=== PATIENT | female | born 1985 | race Caucasian/White ===

== ENCOUNTER 2019-03-21 05:07 | Inpatient (IN) ==
[2019-03-12 10:08] LABS: URINE SOURCE VOIDED
[2019-03-12 10:15] LABS: BASO# 0.03 X1000 (0.0-0.2); BASO% 0.6 % (0.0-0.8); EOS# 0.13 X1000 (0.0-0.7); EOS% 2.7 % (0.0-10.0); HEMATOCRIT 38.5 % (37.0-47.0); HEMOGLOBIN 12.7 g/dL (12.0-16.0); LYMPH% 33.5 % (20.5-51.1); MCH 27.5 PG (27-31); MCV 83.5 FL (81-99); MONO# 0.42 X1000 (0.11-0.59); MONO% 8.8 % (1.7-9.3); MPV 9.8 FL (7.4-10.4); NEUT# 2.59 X1000 (1.4-6.5); NEUT% 54.4 % (42.2-75.2); PLT 260 X1000 (130-400); RBC 4.61 XMIL (4.2-5.4); RDW 14.5 % (11.5-14.5); WBC 4.77 X1000 (4.8-10.8)
[2019-03-12 10:17] LABS: BILIRUBIN URINE NEGATIVE (NEGATIVE); BLOOD URINE SMALL (NEGATIVE); COLOR YELLOW; GLUCOSE URINE NEGATIVE (NEGATIVE); KETONE URINE TRACE mg/dL (NEGATIVE); LEUKOCYTES URINE SMALL (NEGATIVE); NITRITE URINE NEGATIVE (NEGATIVE); PROTEIN URINE NEGATIVE (NEGATIVE); TURBIDITY URINE CLEAR (CLEAR); UR EPITHELIAL CELLS >10 /HPF (<10); URINE BACTERIA 3+ /HPF; URINE WBC <10 /HPF (<10); UROBILINOGEN URINE NORMAL (NORMAL)
--- NOTE | 2019-03-20 12:47 | HISTORY AND PHYSICAL ---
ADMITTING PHYSICIAN: Dr. Ricky Plasencia. CHIEF COMPLAINT: Pelvic pain. HISTORY OF PRESENT ILLNESS: A 33-year-old, G2, P2-0-0-2 with heavy irregular bleeding and pelvic pain, presents for a scheduled laparoscopic-assisted vaginal hysterectomy and bilateral salpingectomy. Her menses is irregular and sometimes lasts for approximately 1 month. She has tried multiple medications to alleviate this problem, but none have been effective. She has tried Depo and oral contraceptives in the past. She is status post a bilateral tubal ligation in 2007. She desires definitive treatment in the form of a hysterectomy. We discussed that hysterectomy would solve heavy menses, but may not treat the chronic pelvic pain that she has experienced. Discussed that pain may even be worsened from scar tissue that develops after surgery. Discussed the benefit of ovarian conservation and risk of heart disease if ovaries are removed at such a young age. Discussed risks, benefits, and alternatives to the procedure. Risks include, but are not limited to, bleeding, infection, damage to surrounding pelvic organs, possible open surgery, possible need for reoperation, risk and DVT and PE, and even risk of . She desires to proceed. REVIEW OF SYSTEMS: Heavy periods, painful periods, and pelvic pain. PAST MEDICAL HISTORY: Tobacco abuse, chronic pelvic pain, asthma. MEDICATIONS: Albuterol sulfate 4 times a day p.r.n. bronchospasm, meloxicam 7.5 mg daily p.r.n. muscle spasm. ALLERGIES: Latex. OBSTETRIC HISTORY: G2, P2-0-0-2. G1: Spontaneous vaginal delivery at 40 weeks, male, 7 pounds 10 ounces (2005). G2: Spontaneous vaginal delivery at 42 weeks, male, 6 pounds 14 ounces (2007). GYNECOLOGIC HISTORY: She denies any history of sexually transmitted infections. Pap smear was performed in 06/2018 and was normal. Menarche was at age 14. She has a history of heavy and irregular menses that has been unrelieved with medical therapy. PAST SURGICAL HISTORY: History of knee surgery, history of bilateral tubal ligation. SOCIAL HISTORY: She smokes 1 pack of cigarettes and has for 15 years. She denies any alcohol or drug use. FAMILY HISTORY: Grandmother with congestive heart failure and a history of bone cancer. Grandfather with diabetes. VITAL SIGNS: Temperature 98 degrees, blood pressure 104/64, heart rate 85, O2 saturation 100% on room air, respiratory rate 16. BMI 23. LABORATORY DATA: White blood cell 4.7, hemoglobin 12.7, hematocrit 38.5, platelets 260,000. Sodium 143, potassium 4.3, chloride 107, CO2 of 24, BUN 9, creatinine 0.7, blood sugar 62. Urinalysis: Small blood, trace ketones, nitrite negative, greater than 10 epithelial cells, small leukocytes. Blood type O positive. UPT on 03/12/2019 negative. Pap smear negative in 06/2018. PELVIC IMAGING: Transvaginal ultrasound on 01/22/2019: There are a few small bilateral ovarian follicles and cysts on the right side. The largest measures about 1.6 cm. On the left side, the largest measures 2.1 x 2 cm. There are extensive pelvic veins around the ovaries and the uterus. This was present on the CT from 06/2018. The uterus is normal in echotexture. The uterus measures 8.3 x 5.8 x 3.8 cm. Endometrial stripe is 8 mm. No free fluid. Impression: 1) Small bilateral ovarian cysts. 2) There are a lot of prominent veins surrounding the female reproductive organs. This may suggest pelvic congestion syndrome. PHYSICAL EXAMINATION: GENERAL: Appears well, alert, in no apparent distress. CARDIOVASCULAR: Regular rate and rhythm. No murmurs, rubs, or gallops. RESPIRATORY: No respiratory distress. Lungs clear to auscultation bilaterally. ABDOMEN: Soft, nontender. Normal bowel sounds. EXTREMITIES: Normal range of motion. Nontender. PELVIC: External exam: Normal. Speculum exam: Cervix without lesion. Mild tenderness to palpation. Bimanual exam: Uterus mobile. Tender to palpation, midposition. No adnexal masses or tenderness. ASSESSMENT AND PLAN: A 33-year-old, 2, para 2-0-0-2 with heavy menses, pelvic pain, possible pelvic congestion syndrome, and tobacco abuse, who desires definitive treatment in the form of a hysterectomy. 1. Plan for a laparoscopic-assisted vaginal hysterectomy and bilateral salpingectomy on 03/21/2019. Discussed risks, benefits, and alternatives with the patient. All questions were answered. 2. Nothing by mouth at midnight on day of surgery. 3. Urinary test prior to procedure. 4. Will plan to admit for observation after procedure completed. [facility]
[2019-03-21] MEDS ORDERED: PEPCID ONE (05:37)
[2019-03-21] MEDS ORDERED: LR 1,000 ML ONE ×3 (05:37→11:24)
[2019-03-21] MEDS ORDERED: REGLAN ONE (05:37)
[2019-03-21] MEDS ORDERED: KEFZOL 1 GM/D5W 1 GM/50 ML IVPB ONE ×2 (05:37→07:02)
[2019-03-21] MEDS ORDERED: QUELICIN (DOSE) ONE (06:04)
[2019-03-21] MEDS ORDERED: DIPRIVAN 1% ONE (06:04)
[2019-03-21] MEDS ORDERED: SODIUM CHLORIDE 0.9% 10 ML ONE (06:04)
[2019-03-21] MEDS ORDERED: XYLOCAINE-MPF 2% ONE (06:04)
[2019-03-21] MEDS ORDERED: VERSED ONE (06:04)
[2019-03-21] MEDS ORDERED: NORCURON ONE (06:04)
[2019-03-21] MEDS ORDERED: FENTANYL ONE (06:05)
[2019-03-21] MEDS ORDERED: XYLOCAINE 1%/EPI 1:100,000 ONE (06:44)
--- NOTE | 2019-03-21 06:46 | H&P REVIEW ---
H&P Update H&P Review: H&P was reviewed and patient was examined, No change has occurred in the patient's condition
[2019-03-21] MEDS ORDERED: OFIRMEV 1000 MG/ISOTONIC SOLN 1,000 MG/100 ML BOTTLE ONE (07:12)
[2019-03-21] MEDS ORDERED: DECADRON ONE (07:12)
[2019-03-21] MEDS ORDERED: ZOFRAN ONE (07:12)
[2019-03-21] MEDS ORDERED: D10W 500 ML ONE (07:21)
[2019-03-21] MEDS ORDERED: PITRESSIN ONE (07:22)
[2019-03-21] MEDS ORDERED: SODIUM CHLORIDE 0.9% ONE (07:30)
[2019-03-21] MEDS ORDERED: ROBINUL ONE (07:32)
[2019-03-21] MEDS ORDERED: NEOSTIGMINE ONE (07:33)
[2019-03-21] MEDS ORDERED: PERCOCET-10 PO PRN (11:10)
[2019-03-21] MEDS ORDERED: PHENERGAN IV PRN (11:11)
[2019-03-21] MEDS ORDERED: SODIUM CHLORIDE 0.9% INJ PRN (11:11)
[2019-03-21] MEDS ORDERED: ZOFRAN PO PRN (11:12)
[2019-03-21] MEDS ORDERED: MORPHINE IV PRN (11:12)
[2019-03-21] MEDS ORDERED: MYLICON DROPS PO PRN (11:18)
[2019-03-21] MEDS: DILAUDID ONE ×2 (11:25→11:28)
[2019-03-21] MEDS: PERCOCET-5 PO PRN ×3 (11:40→20:04)
[2019-03-21] MEDS: MOTRIN PO SCH ×2 (13:13→20:02)
[2019-03-21] MEDS: LR 1,000 ML IV SCH (13:16)
[2019-03-21] MEDS: PERIDEX MT SCH (20:04)
[2019-03-22] MEDS: LR 1,000 ML IV SCH (01:32)
[2019-03-22 02:01] LABS: URINE SOURCE CATH
[2019-03-22 02:05] LABS: BILIRUBIN URINE NEGATIVE (NEGATIVE); BLOOD URINE MODERATE (NEGATIVE); COLOR YELLOW; GLUCOSE URINE NEGATIVE (NEGATIVE); KETONE URINE NEGATIVE (NEGATIVE); LEUKOCYTES URINE NEGATIVE (NEGATIVE); NITRITE URINE NEGATIVE (NEGATIVE); PROTEIN URINE NEGATIVE (NEGATIVE); SP GRAVITY URINE 1.018; TURBIDITY URINE CLEAR (CLEAR); UROBILINOGEN URINE NORMAL (NORMAL)
[2019-03-22 02:06] LABS: UR EPITHELIAL CELLS <10 /HPF (<10); URINE BACTERIA NEGATIVE /HPF; URINE RBC TNTC /HPF (<10); URINE WBC <10 /HPF (<10)
[2019-03-22] MEDS: PERCOCET-5 PO PRN ×2 (02:42→08:53)
[2019-03-22 02:54] LABS: BASO# 0.01 X1000 (0.0-0.2); BASO% 0.1 % (0.0-0.8); EOS# 0.02 X1000 (0.0-0.7); EOS% 0.3 % (0.0-10.0); HEMATOCRIT 32.3 % (37.0-47.0); HEMOGLOBIN 10.4 g/dL (12.0-16.0); LYMPH# 1.49 X1000 (1.2-3.4); LYMPH% 20.9 % (20.5-51.1); MCH 27.2 PG (27-31); MCHC 32.2 g/dL (33-37); MCV 84.6 FL (81-99); MONO# 0.53 X1000 (0.11-0.59); MONO% 7.4 % (1.7-9.3); MPV 9.8 FL (7.4-10.4); NEUT# 5.08 X1000 (1.4-6.5); NEUT% 71.3 % (42.2-75.2); PLT 226 X1000 (130-400); RBC 3.82 XMIL (4.2-5.4); RDW 14.7 % (11.5-14.5); WBC 7.13 X1000 (4.8-10.8)
[2019-03-22 03:11] LABS: AGAP 11; BUN 8 mg/dL (8-22); CALCIUM 8.7 mg/dL (8.8-10.2); CHLORIDE 104 mmol/L (98-107); COSMO 277; CREATININE 0.7 mg/dL (0.5-0.9); ESTIMATED GFR > 60; GLUCOSE 123 mg/dL (70-104); POTASSIUM 3.6 mmol/L (3.5-5.1); SODIUM 139 mmol/L (136-145); TCO2 24 mmol/L (25-35)
--- NOTE | 2019-03-22 07:19 | OB/GYN PROGRESS NOTE ---
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 Progress Note: Vital Signs - 24 hr 03/21/19 11:05 03/21/19 11:15 03/21/19 11:17 Temperature 99 F Pulse Rate 100 H 104 H Respiratory Rate 16 16 Blood Pressure 115/66 Blood Pressure [Right Arm] 108/69 112/72 O2 Sat by Pulse Oximetry 97 98 03/21/19 11:25 03/21/19 11:35 03/21/19 11:45 Temperature Pulse Rate 72 81 80 Respiratory Rate 10 L 12 16 Blood Pressure Blood Pressure [Right Arm] 117/74 109/65 109/65 O2 Sat by Pulse Oximetry 98 96 95 03/21/19 11:50 03/21/19 11:58 03/21/19 12:00 Temperature 97.6 F Pulse Rate 81 70 73 Respiratory Rate 18 Blood Pressure 97/55 97/55 106/54 Blood Pressure [Right Arm] O2 Sat by Pulse Oximetry 99 100 03/21/19 12:15 03/21/19 12:24 03/21/19 12:30 Temperature Pulse Rate 78 81 69 Respiratory Rate 16 Blood Pressure 103/65 93/57 Blood Pressure [Right Arm] O2 Sat by Pulse Oximetry 96 03/21/19 12:45 03/21/19 13:00 03/21/19 13:30 Temperature Pulse Rate 61 70 62 Respiratory Rate Blood Pressure 95/57 113/62 97/56 Blood Pressure [Right Arm] O2 Sat by Pulse Oximetry 03/21/19 14:00 03/21/19 14:30 03/21/19 15:00 Temperature Pulse Rate 79 72 80 Respiratory Rate Blood Pressure 100/61 97/57 106/62 Blood Pressure [Right Arm] O2 Sat by Pulse Oximetry 03/21/19 16:00 03/21/19 17:00 03/21/19 18:00 Temperature Pulse Rate 61 60 85 Respiratory Rate Blood Pressure 95/79 102/59 103/64 Blood Pressure [Right Arm] O2 Sat by Pulse Oximetry 03/21/19 20:00 03/21/19 23:58 03/22/19 03:41 Temperature 97.8 F 98 F Pulse Rate 72 55 L 55 L Respiratory Rate 20 18 18 Blood Pressure 99/66 100/47 Blood Pressure [Right Arm] O2 Sat by Pulse Oximetry 97 97 97 03/22/19 03:57 Temperature 98.2 F Pulse Rate 89 Respiratory Rate 19 Blood Pressure 99/50 Blood Pressure [Right Arm] O2 Sat by Pulse Oximetry 96 Laboratory Results - last 24 hr 03/21/19 03/22/19 03/22/19 01:45 02:47 02:47 WBC 7.13 RBC 3.82 L Hgb 10.4 L Hct 32.3 L MCV 84.6 MCH 27.2 MCHC 32.2 L RDW Std Deviation 14.7 H Plt Count 226 MPV 9.8 Immature Gran % (Auto) 0.0 Neut % (Auto) 71.3 Lymph % (Auto) 20.9 White % (Auto) 7.4 Eos % (Auto) 0.3 Baso % (Auto) 0.1 Immature Gran # (Auto) 0.00 Neut # (Auto) 5.08 Lymph # (Auto) 1.49 White # (Auto) 0.53 Eos # (Auto) 0.02 Baso # (Auto) 0.01 Sodium 139 Potassium 3.6 Chloride 104 Carbon Dioxide 24 L Anion Gap 11 BUN 8 Creatinine 0.7 Estimated GFR/1.73 m2 > 60 BUN/Creatinine Ratio 11 Glucose 123 H Calculated Osmolality 277 Calcium 8.7 L Urine Source CATH Urine Color YELLOW Urine Turbidity CLEAR Urine pH 6.0 Ur Specific [place] 1.018 Urine Protein NEGATIVE Ur Glucose (Stick) NEGATIVE Ur Ketones (Stick) NEGATIVE Urine Blood MODERATE A Urine Nitrite NEGATIVE Urine Bilirubin NEGATIVE Urobilinogen Dipstick NORMAL Urine Leukocytes NEGATIVE Urine WBC (Auto) <10 Urine RBC (Auto) TNTC A U Epithel Cells (Auto) <10 Urine Bacteria (Auto) NEGATIVE 33 yo POD#1 s/p LAVH, BS, cysto for heavy, irregular menses unresponsive to medical therapy and pelvic pain. Patient seen and examined. Pain controlled with PO percocet. She is ambulating and voiding without difficulty. She is tolerating a regular diet, no nausea/vomiting. She notes minimal vaginal bleeding. She is using IS. She denies a BM, but is passing flatus. She is ready to be discharged home. UO: 800cc Physical Exam-General - PHYSICAL EXAM-ADULT Initial Vital Signs Reviewed: Yes - CONSTITUTIONAL General Appearance: appears well, alert, no apparent distress - EYES Eyes: PERRL/EOMI - HEAD, EARS, NOSE, MOUTH & THROAT HENMT: normocephalic/atraumatic - RESPIRATORY Respiratory: lungs clear, normal breath sounds, no respiratory distress - CARDIOVASCULAR Cardiovascular: regular rate, rhythm, no edema - GASTROINTESTINAL (ABDOMEN) Abdominal Exam: non tender, soft, other (non-distended, no rebound/guarding, Sma ll laparoscopic incisions C/D/I with skin glue) - MUSCULOSKELETAL Extremity: normal range of motion, non-tender, normal gait - NEUROLOGIC Neurologic: black leather trimmer II-XII nml as tested Assessment/Plan - Assessment/Plan Assessment: 33 yo POD#1 s/p LAVH, BS, cysto 2/2 heavy, irregular menses and pelvic pain 1. HD stable, afebrile 2. Routine Post-op care 3. Meeting post-operative milestones and desires d/c home 4. D/c home and follow-up in 1 week
[2019-03-22] MEDS ORDERED: PHENERGAN PO PRN (07:22)
[2019-03-22 07:48] VITALS: BP 102/67
--- NOTE | 2019-03-22 07:59 | OPERATIVE NOTE ---
PROCEDURE DATE: 03/21/2019 SURGEON: Christina Plasencia M.D. SCOOPER: Dr. Dionicio Velez. PREOPERATIVE DIAGNOSES: 1. Heavy irregular menses that has failed medical therapy. 2. Pelvic pain. 3. Ultrasound findings consistent with pelvic congestion syndrome. POSTOPERATIVE DIAGNOSES: 1. Heavy irregular menses that has failed medical therapy. 2. Pelvic pain. 3. Ultrasound findings consistent with pelvic congestion syndrome. PROCEDURES PERFORMED: 1. Laparoscopic-assisted vaginal hysterectomy. 2. Bilateral salpingectomy. 3. Cystoscopy. ANESTHESIA: General. ESTIMATED BLOOD LOSS: 250 mL. IV FLUIDS: 2500 mL. URINE OUTPUT: 500 mL, clear at the end of the procedure. FINDINGS: Normal-appearing uterus, tubes, and ovaries, mildly increased uterine vessels. COMPLICATIONS: None. SPECIMENS: Cervix, uterus, and bilateral fallopian tubes. INDICATIONS AND CONSENT: The patient is a 33-year-old, G2, P2-0-0-2 with heavy, irregular menses, unresponsive to medical therapy, who desires definitive treatment in the form of a hysterectomy. She has also had persistent pelvic pain and ultrasound findings consistent with possible pelvic congestion syndrome. Plan for hysterectomy was discussed with the patient, and she was made aware that the surgery will solve the heavy irregular menses, but may not solve her persistent pelvic pain. She agreed to proceed. Risks, benefits, and alternatives were discussed with the patient. Risks include, but are not limited to, bleeding, infection, damage to surrounding pelvic organs, possible need for open procedure, possible need for reoperation, increased risk of VTE, and even . Consent was obtained. DESCRIPTION OF PROCEDURE: The patient was taken to the operating room, where general anesthesia was found to be adequate. She was prepped and draped in the normal sterile fashion in the dorsal lithotomy position with feet and heels in stirrups. A Garcia catheter was placed sterilely. A bivalve speculum was placed in the vagina, and the anterior lip of the cervix was grasped with a single-tooth tenaculum. The cervix was dilated, and a orderTalklka uterine manipulator was placed. The tenaculum was removed. Attention was then turned to the abdominal portion of the exam, where a 5 mm infraumbilical skin incision was made. The Veress needle was placed through this incision with an entry pressure of 3 mmHg. The abdomen was then thoroughly insufflated, and pneumoperitoneum achieved. A 5 mm trocar was then placed under direct visualization with the Optiview camera and trocar. Two 5 mm trocars were then placed in the right and left lower quadrant under direct visualization. Inspection of the pelvis and abdominal cavity was done. The left fallopian tube was then removed using the LigaSure device across the mesosalpinx. It was placed in the posterior cul-de-sac for removal later. The right fallopian tube was then removed using the LigaSure device in a similar fashion, and placed in the posterior cul-de-sac. The left round ligament was then grasped, and a LigaSure was used to cauterize and divide through the round ligaments and the utero- ovarian ligament. Sequential bites were taken down to the broad ligament. The same procedure was performed on the right side. Attention was then turned to creating a bladder flap. The peritoneum overlying the bladder was elevated, and the bladder flap was created using sharp dissection. Next, the LigaSure device was then used to skeletonize and divide the uterine arteries bilaterally. Attention was then turned to the vaginal portion of the procedure. The uterine manipulator was removed, and the cervix was grasped with two Lilli clamps on the anterior and posterior lip. Pitressin was then injected circumferentially, and a circumferential incision was then made onto the cervix using a knife. The posterior cul-de-sac was entered sharply, and a long weighted speculum placed into the posterior cul-de-sac. Sequential bites were then taken on each side through the uterosacral and cardinal ligaments with a curved Jim clamp. Each pedicle was suture ligated with 0 Vicryl. The uterosacral ligaments were tagged. Attention was then turned to the anterior cul-de-sac, and the bladder dissected off the uterus bluntly and anterior colpotomy created. The bilateral uterine vessels were clamped, cut, and suture ligated with 0-vicryl. Once the uterus was freed, it was removed from the vagina. The pedicles were inspected and oversewn bilaterally with 0 Vicryl suture. Excellent hemostasis was noted. Bilateral fallopian tubes were removed from the posterior cul-de-sac and sent for specimen. Attention was then turned to closing the cuff. The peritoneum was closed in a pursestring fashion, and the vaginal cuff was then closed in a horizontal fashion with [id number] 0 Vicryl. The tagged uterosacral ligaments were incorporated into the cuff closure for suspension. Hemostasis was noted. Cystoscopy was then performed. The Garcia catheter was removed, and the 30-degree cystoscope was placed through the urethra. Brisk efflux was noted from both ureteral orifices. No damage was noted to the bladder. The cystoscope was then removed, and attention was turned to the abdomen. The abdomen was re-insufflated, and the vaginal cuff inspected. The cuff was irrigated with normal saline, and hemostasis was noted. The pneumoperitoneum was then released. All trocars and instruments were removed. The 5 mm skin incisions were reapproximated with 4-0 Monocryl. All sponge, lap, and needle counts were correct x2. She received 2 grams of Ancef prior to skin incision. She was awakened and taken to the recovery room in stable condition. [facility]
[2019-03-22] MEDS: MOTRIN PO SCH (08:53)
[2019-03-22] MEDS: PERIDEX MT SCH (08:53)
[2019-03-22] MEDS ORDERED: MIRALAX PO SCH (09:00)
== END 2019-03-22 09:50 | disposition home or self-care (01) | DRG 743 ==
LOC: PAT 05:07 → 4N 05:07 → OBSVTOIN 11:19
PROVIDERS: ADMIT Student in an Organized Health Care Education/Training Program; ATTEND Student in an Organized Health Care Education/Training Program
PROC: GY.CYST (2019-03-21 07:06)
PROC: [UNRECOGNIZED PROCEDURE] (2019-03-21 07:06)